=== PATIENT | male | born 1990 | race Caucasian/White ===

== ENCOUNTER → 2021-01-07 12:34 | Outpatient (CLI) | payer OTHER, SELFPAY ==
--- NOTE | ~2021-01-07 | US_ITS ---
EXAMINATION: US soft tissue chest DATE: 01/07/2021 13:01 INDICATION: Palpable subcutaneous mass at the left chest and right abdomen. TECHNIQUE: Multiple grayscale and Doppler ultrasound images of the regions of concern at the left [address] and right abdomen were obtained. COMPARISON: None FINDINGS: 1.4 x 1.0 x 0.4 cm hyperechoic ovoid subcutaneous mass at the region of concern at the anterior left chest wall and similar-appearing 1.4 x 1.3 x 0.5 cm hyperechoic ovoid subcutaneous mass at the region of concern at the anterior right upper quadrant. Both lesions are nonspecific but with appearance co nsistent with an statistically most likely to represent lipomas. IMPRESSION: 1. A couple small subcutaneous nodules at both of the regions of concern which are nonspecific but wi th appearance consistent with and statistically most likely to represent lipomas. MRI or CT could be obtained for more definitive determination as clinically indicated. Reviewed, dictated and finalized at location A. [facility] [employer] IMPRESSION: 1. A couple small subcutaneous nodules at both of the regions of concern which are nonspecific but with appearance consistent with and statistically most like ly to represent lipomas. MRI or CT could be obtained for more definitive determ ination as clinically indicated.
== END ==
PROVIDERS: PCP Registered Nurse; Visit Provider Registered Nurse
DX: R22.2 Localized swelling, mass and lump, trunk (principal)
CPT/HCPCS: 76604

== ENCOUNTER → 2021-01-18 09:42 | Outpatient (CLI) | payer OTHER, SELFPAY ==
--- NOTE | ~2021-01-18 | CT_ITS ---
EXAMINATION: CT chest abdomen pelvis w con DATE: 01/18/2021 10:41 INDICATION: Subcutaneous masses of the left lower chest wall and right upper quadrant TECHNIQUE: Transaxial computed tomographic images of the chest, abdomen, and pelvis were obtained aft er the administration of 100 cc of Omnipaque 350 intravenous contrast. The dose-length product (DLP) was 535.54 mGy-cm. Automated exposure control and iterative reconstruction technique were employed. COMPARISON: None FINDINGS: CHEST CT: The lungs are free of acute opacities. There is no pleural effusion or pneumothorax. No pathologicall y enlarged thoracic lymph nodes are identified. The heart size is normal. There is a subtle area of f at stranding in the subcutaneous tissues of the left lower chest wall in the area of palpable concern on image 87. ABDOMEN/PELVIS CT: There is a 6 mm cyst or hemangioma of the right hepatic lobe. The spleen, pancreas, gallbladder, and adrenal glands are normal. The kidneys are unremarkable. No pathologically enlarged abdominal or pelv ic lymph nodes are identified. There is no free intraperitoneal gas or evidence of bowel obstruction. There is an area of fat stranding in the subcutaneous tissues of the right upper quadrant on image 1 52 corresponding to the palpable abnormality. IMPRESSION: 1. Areas of fat stranding corresponding to the marked palpable masses, likely inflammation. Clinical follow-up is recommended. Reviewed, dictated and finalized at location A. [employer] IMPRESSION: 1. Areas of fat stranding corresponding to the marked palpable masses, likely i nflammation. Clinical follow-up is recommended.
== END ==
PROVIDERS: PCP Registered Nurse; Visit Provider Registered Nurse
DX: R22.9 Localized swelling, mass and lump, unspecified (principal)
CPT/HCPCS: 71260; 74177; Q9967